=== PATIENT | female | born 1980 | race African-American/Black ===

== ENCOUNTER 2020-11-06 11:40 | Emergency (ER) | payer OTHER ==
[~2020-11-06] VITALS: Ht 172.7 cm; Wt 78.5 kg
[2020-11-06 12:03] LABS: *BILIRUBIN,URIN NEGATIVE (NEGATIVE); *BLOOD, URINE 2+ (NEGATIVE); *COLOR,URINE YELLOW (YELLOW); *KETONES,URINE NEGATIVE (NEGATIVE); *UROBILINOGEN,URINE 0.2 E.U./dl (NORMAL); LEUKOCYTE ESTERASE ,URINE NEGATIVE (NEGATIVE); NITRITE, URINE NEGATIVE (NEGATIVE); PH,URINE 6.5 (5.0-8.0); UGLUCOSE NEGATIVE (NEGATIVE)
[2020-11-06 12:04] LABS: *CLARITY,URINE SLIGHTLY CLOUDY (CLEAR)
[2020-11-06 12:05] LABS: *URINE HCG, QUAL NEGATIVE (NEGATIVE)
[2020-11-06 12:10] LABS: MUCUS,URINE MANY /LPF (0-FEW)
[2020-11-06 12:11] LABS: RBC,URINE 20-50 /HPF (0-3)
[2020-11-06 12:12] LABS: BACTERIA,URINE FEW /HPF (NONE SEEN); SQUAMOUS EPITHELIAL CELL,UR FEW /HPF (NONE SEEN); WBC,URINE 0-3 /HPF (0-3)
--- NOTE | 2020-11-06 13:08 | NUR ---
[email or web address], medical screening exam in progress
[2020-11-06] MEDS ORDERED: IBUPROFEN 800 MG TABLET PO ONE (13:15)
[2020-11-06] MEDS ORDERED: IBUPROFEN 800 MG TABLET ONE (13:27)
[2020-11-06] MEDS ORDERED: DOXY100C2 PO (14:35)
[2020-11-06] MEDS ORDERED: HYDR-3972 PO (14:35)
--- NOTE | 2020-11-06 15:01 | NUR ---
Patient discharged to home in stable condition with steady gait. Written and verbal after care instructions given to patient. Patient verbalized understanding of instructions. 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
== END 2020-11-06 15:04 | disposition home or self-care (01) ==
LOC: ER 11:42
DX: K76.9 Liver disease, unspecified (principal); R31.29 Other microscopic hematuria; Z88.1 Allergy status to other antibiotic agents; Z88.2 Allergy status to sulfonamides
CPT/HCPCS: 84703; A4663

== ENCOUNTER 2022-02-08 09:48 | Emergency (ER) | payer OTHER ==
[~2022-02-08] VITALS: Ht 160 cm; Wt 82.6 kg
[~2022-02-08 09:48] MED LIST: DOXY100C5 PO; HYDR-3972 PO
[2022-02-08] MEDS ORDERED: VALA100026 PO (10:56)
[2022-02-08] MEDS ORDERED: CLIN300C12 PO (10:56)
--- NOTE | 2022-02-08 11:16 | NUR ---
Patient discharged to home in stable condition. Written and verbal after care instructions given. Patient verbalizes understanding of instructions. Stressed follow up or return to ER for worsening s/s.
== END 2022-02-08 11:17 | disposition home or self-care (01) ==
LOC: ER 09:48
DX: B02.9 Zoster without complications (principal)
CPT/HCPCS: A4663

== ENCOUNTER 2024-05-18 02:02 | Emergency (ER) | payer OTHER ==
[~2024-05-18] VITALS: Ht 160 cm; Wt 85.7 kg
[~2024-05-18 02:02] MED LIST changes: +CLIN300C12 PO; +VALA100026 PO
[2024-05-18 02:43] LABS: *URINE HCG, QUAL NEGATIVE (NEGATIVE)
[2024-05-18] MEDS ORDERED: ONDANSETRON ODT 4 MG TAB.RAPDIS ONE (02:43)
[2024-05-18] MEDS ORDERED: LORAZEPAM 1 MG TABLET ONE (02:44)
[2024-05-18] MEDS ORDERED: HYDROMORPHONE 1 MG/1 ML DISP.SYRIN ONE ×2 (02:44→04:24)
[2024-05-18] MEDS: HYDROMORPHONE 1 MG/1 ML DISP.SYRIN IM ONE ×2 (02:46→04:30)
[2024-05-18] MEDS: LORAZEPAM 0.5 MG TABLET PO ONE (02:46)
[2024-05-18] MEDS: ONDANSETRON ODT 4 MG TAB.RAPDIS SL ONE (02:46)
[2024-05-18 02:51] LABS: *BILIRUBIN,URIN NEGATIVE (NEGATIVE); *CLARITY,URINE CLEAR (CLEAR); *COLOR,URINE YELLOW (YELLOW); *KETONES,URINE NEGATIVE (NEGATIVE); *PROTEIN,URINE TRACE (NEGATIVE); *UROBILINOGEN,URINE 0.2 E.U./dl (NORMAL); LEUKOCYTE ESTERASE ,URINE NEGATIVE (NEGATIVE); NITRITE, URINE NEGATIVE (NEGATIVE); UGLUCOSE NEGATIVE (NEGATIVE)
[2024-05-18 02:53] LABS: *BLOOD, URINE TRACE (NEGATIVE)
[2024-05-18 03:04] LABS: BACTERIA,URINE FEW /HPF (NONE SEEN); RBC,URINE 0-3 /HPF (0-3); SQUAMOUS EPITHELIAL CELL,UR FEW /HPF (NONE SEEN); WBC,URINE 0-3 /HPF (0-3)
[2024-05-18] MEDS ORDERED: CYCL10TA9 PO (03:20)
[2024-05-18] MEDS ORDERED: HYDR-3980 PO (03:20)
[2024-05-18] MEDS ORDERED: ONDA4TAB11 PO (03:20)
[2024-05-18 07:23] VITALS: BP 122/63; TEMP 97.7; O2SAT 100
== END 2024-05-18 06:06 | disposition home or self-care (01) ==
LOC: ER 02:05
DX: M54.9 Dorsalgia, unspecified (principal); R10.2 Pelvic and perineal pain; F12.90 Cannabis use, unspecified, uncomplicated; F17.210 Nicotine dependence, cigarettes, uncomplicated; Z79.624 Long term (current) use of inhibitors of nucleotide synthesis; Z88.1 Allergy status to other antibiotic agents; Z88.2 Allergy status to sulfonamides
CPT/HCPCS: 99284; 81001; 84703; 72080; 96372 ×2; J1171 ×2; A4606; A4663; Q0162